=== PATIENT | female | born 1985 | race Caucasian/White ===

== ENCOUNTER → 2017-06-08 14:04 | Outpatient (CLI) | payer BC, SELFPAY ==
[2017-06-14 14:16] LABS: HPV Reflexed? NOT INDICATED
== END ==
PROVIDERS: Visit Provider Obstetrics & Gynecology
DX: Z12.4 Encounter for screening for malignant neoplasm of cervix (principal)
CPT/HCPCS: 88175; G0145

== ENCOUNTER 2018-06-17 12:12 | Emergency (ER) | payer BC, SELFPAY ==
[2018-06-17 12:13] VITALS: BP 124/99; PULSE 80; RESP 16; TEMP 36.7; O2SAT 99; BMI 33.5
--- NOTE | 2018-06-17 12:30 | US_ITS ---
STUDY: ULTRASOUND OF THE FEMALE PELVIS - COMPLETE REASON FOR EXAM: Female, 33 years old. Lower quadrant pain LMP: TECHNIQUE: Lower quadrant pain TECHNICAL QUALITY: Adequate. COMPARISON: None. FINDINGS: The uterus is anteverted and is in a midline position. The uterus measures 7.1 x 5.8 x 4.4 cm. Normal uterine cervix. The endometrium measures 15 mm in thickness, and is hyperechoic. There is no definitive evidence of a mass. The uterus appears fairly vascular. . There is no demonstrated myometrial mass. I.U.D. - The patient does not have an I.U.D. The right ovary is visualized. The right ovary measures 2.2 x 2.2 x 1.7 cm. Is a small focal right adnexal cyst measuring 2.1 x 0.9 cm. This appears tubular extending from superior to right in a transverse position. The left ovary is visualized. The left ovary measures 3.0 x 2.3 x 1.9 cm. There is no left ovarian cyst or ovarian mass. The left adnexa there is a distended appearing tubular anechoic cystic appearing mass that may measure up to 5.4 x 2.0 cm. There is a small amount of free fluid. The bladder is decompressed during the study. Polycystic ovary disease: No. US/Transvaginal Non- IMPRESSION: Findings are suspicious for bilateral distended fallopian tubes or hydrosalpinx left greater than right. Mild upper limits of normal thickening of the endometrium. Nonspecific vascular appearing uterus. Small amount of free fluid in the pelvis. Electronically Signed: Erendira Mendiola MD at 14:35 EDT Tel , Service support ,
--- NOTE | 2018-06-17 12:36 | ED.DCSUM_ITS ---
- ER Visit Summary Date of Service: 06/17/18 Chief Complaint: Right lower abdominal pain History of Present Illness: The patient is a 33 F who has right lower abdominal pain. She states it started last night and was continuous throughout the night. It is sharp in the deep right lower quadrant area. She has had a history of an appendectomy but states it feels similar to that. She has had nausea throughout the night. No vomiting, diarrhea, constipation. Denies any urinary symptoms. She took Tylenol this morning which did not help with her pain. She states that she has had issues with her right ovary in the past but she has not had any further testing from her [facility] for this. Physical Examination: Vital signs reviewed. HEENT exam unremarkable. Heart is regular rate and rhythm without murmurs. Lungs are clear to auscultation. Abdomen is soft with tenderness in the deep right pelvic area. Extremities reveal no edema. Skin exam normal. Neurologic exam normal. Test Results: laboratory studies are normal. Ultrasound reveals a small right o varian cyst with some mild hydrosalpinx bilaterally Emergency Department Course and Treatment: The patient was offered morphine but she states that does not work for her since then she was given Toradol. Her ultrasound does show an ovarian cyst on the right. There is bilateral mild hydrosalpinx. I do not feel that this is causing her pain. The ovarian cyst is likely causing her pain. I feel she can be discharged to follow-up with her [facility]. Given naproxen for pain at home. Treatment Plan: [] Disposition: Discharge Impression: Right ovarian cyst This note was generated with [employer] dictation software. It may contain incorrect words, spelling, and punctuation that were not noted in review of the chart prior to signing ED Disposition - Plan for ED Patient: Referrals: Chad Amaral MD [Primary Care Provider] -
[2018-06-17] MEDS: Ketorolac 30 MG/ML Syringe IV (12:45)
[2018-06-17 12:53] LABS: Absolute Lymphocyte Count 1.51 X10^3/ul (0.83-4.51); Absolute Neutrophil Count 6.1 X10^3/uL (2.0-7.7); Basophil# 0.02 X10^3/uL; Basophil% 0.2 % (0-1); Eosinophil# 0.06 X10^3/uL; Eosinophils% 0.7 % (0-5); Hematocrit 40.4 % (37-47); Hemoglobin 13.7 g/dl (12.0-15.0); Lymphocyte # 1.51 X10^3/ul (4.0); Lymphocyte % 18.4 % (19-41); Mean Corp Hgb Conc 33.9 g/gl (32-36); Mean Corpuscular Hgb 27.7 pg (27.0-32.0); Mean Corpuscular Volume 81.8 fL (81-99); Mean Platelet Vol. 10.3 fl (6.2-12.0); Monocyte# 0.47 X10^3/uL; Monocyte% 5.7 % (0-10); Neutrophil # 6.14 X10^3/uL (2.7-7.7); Neutrophil % 74.9 % (47-70); Platelet Count 218 K/mm3 (150-450); RBC Distribution Width CV 13.1 % (11.6-14.6); RBC Distribution Width SD 38.5 fl (35.1-43.9); Red Blood Count 4.94 M/mm3 (4.2-5.4); White Blood Count 8.2 K/mm3 (4.4-11.0)
[2018-06-17 12:54] LABS: POSITIVE COUNT NO; POSITIVE DIFFERENTIAL NO; POSITIVE MORPHOLOGY NO
[2018-06-17 12:55] LABS: Bacteria 0 SEEN /hpf (None Seen); Mucous, Urine 0 SEEN /hpf (<or=2+); Red Blood Cells-Urine 0 SEEN /hpf (0-5); White Blood Cells 0 SEEN /hpf (0-5)
[2018-06-17 13:02] LABS: Anion Gap 5 (5-15); BUN 9 mg/dL (7-18); BUN/Creat Ratio 9.2 RATIO (10-20); Calcium,Total 8.6 mg/dL (8.5-10.1); Chloride 109 mmol/L (98-107); Creatinine, Serum 0.98 mg/dL (0.55-1.02); EST Glomerular Filtration Rate 71 mL/min (>60); Est Glom Filt Rate - Afr Amer 86 mL/min (>60); Estimated Creatinine Clearance 62.76 ml/min; Glucose 83 mg/dL (74-106); Potassium 3.5 mmol/L (3.5-5.1); Sodium Level 140 mmol/L (136-145)
[2018-06-17 13:02] LABS: Color, Urine Yellow (Yellow); Glucose, Dipstick Normal (Normal); Ketone-Dipstick Negative (Negative); Leukocyte Esterase-Dipstick Negative /ul (Negative); Nitrite-Dipstick Negative (Negative); Occult Blood-Urine Negative /ul (Negative); Protein-Dipstick Negative (Negative); Urine Bilirubin Dipstick Negative (Negative); Urine Clarity Clear (Clear); Urine Urobilinogen Normal (Normal)
[2018-06-17 13:03] LABS: Internal QC Validated? YES +Cl - CLEAR BKGD; Pregnancy, Urine Negative Negative
[2018-06-17 13:16] LABS: Squamous Epithelial Cells - UA 0-5 SEEN /hpf (5-10)
--- NOTE | 2018-06-17 14:47 | ED.DEP ---
ED Disposition - Plan for ED Patient: Disposition: Home or Assisted Living Instructions: ED Cyst Ovarian Prescriptions: Naproxen [Naprosyn] 500 mg PO BID PRN #20 tab Referrals: Chad Amaral MD [Primary Care Provider] -
[2018-06-17 14:52] VITALS: BP 114/87; PULSE 66; RESP 16
== END 2018-06-17 14:53 | disposition home or self-care (01) ==
PROVIDERS: Emergency Provider Emergency Medicine; Family Provider Family Medicine; PCP Family Medicine
DX: N83.201 Unspecified ovarian cyst, right side (principal)
CPT/HCPCS: 76830; 80048; 81001; 81025; 85025; 93976; 96374; 99285; A4216

== ENCOUNTER → 2018-09-13 11:28 | Outpatient (CLI) | payer BC, SELFPAY ==
[2018-09-13 12:55] LABS: Estradiol 250.6 pg/mL; Progesterone Level 0.48 ng/mL (See Comment)
[2018-09-15 11:12] LABS: HPV Reflexed? NOT INDICATED
== END ==
PROVIDERS: Visit Provider Obstetrics & Gynecology
DX: Z12.4 Encounter for screening for malignant neoplasm of cervix (principal); N94.0 Mittelschmerz
CPT/HCPCS: 36415; 82670; 84144; 84403; 88175; G0145

== ENCOUNTER → 2019-08-14 11:35 | Outpatient (CLI) | payer OTHER, SELFPAY | PROVIDERS: PCP Family Medicine; Referring Provider Family Medicine; Visit Provider Family Medicine | DX: Z03.818 Encounter for observation for suspected exposure to other biological agents ruled out (principal) | CPT/HCPCS: 87635; G2023; U0003 ==